=== PATIENT | female | born 1990 | race Caucasian/White ===

== ENCOUNTER 2021-02-16 01:55 | Observation (INO) | payer OTHER ==
--- NOTE | 2021-02-16 02:05 | ED ---
Nausea/Vomiting/Diarrhea HPI - General Stated complaint: NVD Time Seen by Provider: 02/16/21 02:04 - History of Present Illness Initial comments: This is a 22-year-old male DF for evaluation today she presents today for evaluation regards to when trying from opiates. Patient has been taking chronic opiates currently going through withdrawal she was given some form of Suboxone rechecks and he believes that she is too early and she has a severe anxiety type all by mouth trial reaction MD complaint: nausea, vomiting, diarrhea, abdominal pain Description of Vomiting: food contents Associated Abdominal Pain: Yes Radiation: none Quality: cramping, aching Improves with: none Worsens with: none Context: sick contacts Associated Symptoms: myalgias, nausea/vomiting - Related Data Home Medications Medication Instructions Recorded Confirmed Acetaminophen [Tylenol Arthritis] 650 mg PO Q4H PRN 02/16/21 02/16/21 Calcium/Magnes 1 tab PO DIRECTED 02/16/21 02/16/21 Chlorpheniramine Maleate 4 mg PO Q4H PRN 02/16/21 02/16/21 [Chlor-Trimeton] Ibuprofen [Motrin] 600 mg PO Q6H PRN 02/16/21 02/16/21 Multivitamins, Thera [Multivitamin 1 tab PO DAILY 02/16/21 02/16/21 (formulary)] Penicillin V Potassium [Pen Vee K] 500 mg PO Q6H 02/16/21 02/16/21 Thiamine [Vitamin B-1] 100 mg PO DAILY 02/16/21 02/16/21 buPROPion XL [Wellbutrin XL] 150 mg PO DAILY@0600 02/16/21 02/16/21 buprenorphine HCL [Subutex] 4 mg SL ONCE 02/16/21 02/16/21 busPIRone HCl [Buspar] 10 mg PO TID PRN 02/16/21 02/16/21 cloNIDine HCL [Catapres] 0.1 mg PO Q4H PRN 02/16/21 02/16/21 ondansetron HCL [Zofran Oral Soln] 4 mg PO Q6H PRN 02/16/21 02/16/21 ondansetron HCL [Zofran] 8 mg PO Q6H PRN 02/16/21 02/16/21 traZODone HCL 50 - 150 mg PO HS 02/16/21 02/16/21 Allergies Allergy/AdvReac Type Severity Reaction Status Date / Time No Known Allergies Allergy Verified 02/16/21 09:01 Review of Systems ROS Statement: Those systems with pertinent positive or pertinent negative responses have been documented in the HPI. ROS Other: All systems not noted in ROS Statement are negative. General Exam General appearance: alert, in no apparent distress Head exam: Present: atraumatic, normocephalic, normal inspection Eye exam: Present: normal appearance, PERRL, EOMI. Absent: scleral icterus, conjunctival injection, periorbital swelling ENT exam: Present: normal exam, mucous membranes moist Neck exam: Present: normal inspection. Absent: tenderness, meningismus, lymphadenopathy Respiratory exam: Present: normal lung sounds bilaterally. Absent: respiratory distress, wheezes, rales, rhonchi, stridor Cardiovascular Exam: Present: regular rate, normal rhythm, normal heart sounds. Absent: systolic murmur, diastolic murmur, rubs, gallop, clicks GI/Abdominal exam: Present: soft, normal bowel sounds. Absent: distended, tenderness, guarding, rebound, rigid Extremities exam: Present: normal inspection, full ROM, normal capillary refill. Absent: tenderness, pedal edema, joint swelling, calf tenderness Back exam: Present: normal inspection Neurological exam: Present: alert, oriented X3, CN II-XII intact Psychiatric exam: Present: normal affect, normal mood Skin exam: Present: warm, dry, intact, normal color. Absent: rash Course Vital Signs 02/16/21 02/16/21 02/16/21 02:11 04:35 10:04 Temperature 99.1 F 98.4 F Pulse Rate 72 88 91 Respiratory 18 18 18 Rate Blood Pressure 120/71 109/85 119/66 O2 Sat by Pulse 95 96 97 Oximetry 02/16/21 02/16/21 15:23 17:00 Temperature 98.5 F Pulse Rate 84 67 Respiratory 18 20 Rate Blood Pressure 110/68 123/84 O2 Sat by Pulse 98 96 Oximetry - Reevaluation(s) Reevaluation #1: Medical record is reviewed Patient symptoms adequately improving control Patient informed results and questions have been answered Medical Decision Making - Medical Decision Making 22 female DF for evaluation of alcohol withdrawal. Patient given symptomatic therapy here feels improved and can be admitted for treatment of symptoms dominic ent - Lab Data Result diagrams: 02/16/21 07:12 02/16/21 07:12 Lab Results 02/16/21 02/16/21 Range/Units 02:45 02:45 WBC 12.8 H (3.8-10.6) k/uL RBC 4.97 (3.80-5.40) m/uL Hgb 15.1 (11.4-16.0) gm/dL Hct 44.9 (34.0-46.0) % MCV 90.3 (80.0-100.0) fL MCH 30.3 (25.0-35.0) pg MCHC 33.6 (31.0-37.0) g/dL RDW 12.7 (11.5-15.5) % Plt Count 237 (150-450) k/uL MPV 7.7 Neutrophils % 87 % Lymphocytes % 8 % Monocytes % 4 % Eosinophils % 0 % Basophils % 0 % Neutrophils # 11.1 H (1.3-7.7) k/uL Lymphocytes # 1.0 (1.0-4.8) k/uL Monocytes # 0.6 (0-1.0) k/uL Eosinophils # 0.0 (0-0.7) k/uL Basophils # 0.0 (0-0.2) k/uL Sodium 141 (137-145) mmol/L Potassium 4.1 (3.5-5.1) mmol/L Chloride 104 (98-107) mmol/L Carbon Dioxide 27 (22-30) mmol/L Anion Gap 10 mmol/L BUN 24 H (7-17) mg/dL Creatinine 0.86 (0.52-1.04) mg/dL Est GFR (CKD-EPI)AfAm >90 (>60 ml/min/1.73 sqM) Est GFR (CKD-EPI)NonAf >90 (>60 ml/min/1.73 sqM) Glucose 118 H (74-99) mg/dL Calcium 11.0 H (8.4-10.2) mg/dL Phosphorus 1.9 L (2.5-4.5) mg/dL Magnesium 2.1 (1.6-2.3) mg/dL Total Bilirubin 0.6 (0.2-1.3) mg/dL AST 37 H (14-36) U/L ALT 31 (4-34) U/L Alkaline Phosphatase 105 (38-126) U/L Creatine Kinase 595 H (30-135) U/L Total Protein 8.6 H (6.3-8.2) g/dL Albumin 5.3 H (3.5-5.0) g/dL - EKG Data -: EKG Interpreted by Me (EKG shows sinus tachycardia 102 VT 134 QRS 84 QTc 497) Disposition Clinical Impression: Opiate withdrawal Disposition: ADMITTED IP TO THIS HOSP Condition: Fair Is patient prescribed a controlled substance at d/c from ED?: No
[2021-02-16] MEDS ORDERED: SODIUM CHLORIDE 0.9% 500 ML 500 ML IV STA (02:16)
[2021-02-16] MEDS ORDERED: ONDANSETRON 4 MG/2 ML VIAL IVP STA (02:16)
[2021-02-16] MEDS ORDERED: SODIUM CHLORIDE 0.9% 1,000 ML IV STA ×2 (02:16)
[2021-02-16] MEDS ORDERED: LORazepam 2 MG/ML INJ IV STA ×2 (02:16→03:42)
[2021-02-16] MEDS ORDERED: diphenhydrAMINE 50 MG/ML 1 ML VIAL IVP STA (02:16)
[2021-02-16] MEDS ORDERED: cloNIDine 0.3 MG/24HR PATCH TRANSDERM SCH (02:30)
[2021-02-16 03:27] LABS: ALT 31 U/L (4-34); AST 37 U/L (14-36); African American GFR (CKD) >90 (>60 ml/min/1.73 sqM); Albumin 5.3 g/dL (3.5-5.0); Alkaline Phosphatase 105 U/L (38-126); Anion Gap 10 mmol/L; Blood Urea Nitrogen 24 mg/dL (7-17); Carbon Dioxide 27 mmol/L (22-30); Chloride 104 mmol/L (98-107); Creatine Kinase 595 U/L (30-135); Glucose 118 mg/dL (74-99); Magnesium 2.1 mg/dL (1.6-2.3); Non-African American GFR(CKD) >90 (>60 ml/min/1.73 sqM); Phosphorus 1.9 mg/dL (2.5-4.5); Potassium 4.1 mmol/L (3.5-5.1); Sodium 141 mmol/L (137-145); Total Bilirubin 0.6 mg/dL (0.2-1.3); Total Protein 8.6 g/dL (6.3-8.2)
[2021-02-16 03:32] LABS: Basophils % (A) 0 %; Eosinophils % (A) 0 %; HCT 44.9 % (34.0-46.0); HGB 15.1 gm/dL (11.4-16.0); Lymphocytes % (A) 8 %; MCH 30.3 pg (25.0-35.0); MCHC 33.6 g/dL (31.0-37.0); MCV 90.3 fL (80.0-100.0); Mean Platelet Volume 7.7; Monocytes # (A) 0.6 k/uL (0-1.0); Monocytes % (A) 4 %; Neutrophils # (A) 11.1 k/uL (1.3-7.7); Neutrophils % (A) 87 %; Platelet Count 237 k/uL (150-450); RBC 4.97 m/uL (3.80-5.40); RDW 12.7 % (11.5-15.5); WBC 12.8 k/uL (3.8-10.6)
[2021-02-16] MEDS ORDERED: NALOXONE 0.4 MG/ML 1 ML VIAL IV PRN (03:42)
[2021-02-16] MEDS ORDERED: diphenhydrAMINE 50 MG/ML 1 ML VIAL IVP PRN (03:43)
[2021-02-16] MEDS ORDERED: ONDANSETRON 4 MG/2 ML VIAL IVP PRN (03:43)
[2021-02-16] MEDS: DEXTROSE 5%-0.45% NACL 1,000 ML IV SCH ×2 (04:34→20:18)
[2021-02-16 07:29] LABS: Basophils % (A) 0 %; Eosinophils # (A) 0.1 k/uL (0-0.7); Eosinophils % (A) 1 %; HCT 39.4 % (34.0-46.0); HGB 13.5 gm/dL (11.4-16.0); Lymphocytes # (A) 1.3 k/uL (1.0-4.8); Lymphocytes % (A) 13 %; MCH 30.8 pg (25.0-35.0); MCHC 34.2 g/dL (31.0-37.0); Mean Platelet Volume 7.6; Monocytes # (A) 0.4 k/uL (0-1.0); Monocytes % (A) 4 %; Neutrophils # (A) 8.4 k/uL (1.3-7.7); Neutrophils % (A) 81 %; Platelet Count 203 k/uL (150-450); RBC 4.37 m/uL (3.80-5.40); WBC 10.3 k/uL (3.8-10.6)
[2021-02-16] MEDS ORDERED: cloNIDine 0.1 MG/24HR PATCH TRANSDERM SCH (10:00)
[2021-02-16] MEDS: SODIUM CHLORIDE 0.9% 1,000 ML IV SCH ×2 (10:21→20:10)
[2021-02-16] MEDS ORDERED: busPIRone HCl 10 MG TAB PO PRN (10:50)
[2021-02-16] MEDS ORDERED: IBUPROFEN 600 MG TAB PO PRN (10:50)
[2021-02-16] MEDS ORDERED: ACETAMINOPHEN TAB 325 MG TAB PO PRN (10:50)
[2021-02-16] MEDS ORDERED: ONDANSETRON 4 MG TAB PO PRN (10:50)
--- NOTE | 2021-02-16 10:56 | P.HPIM ---
History of Present Illness Patient is an 30-year-old female came in with complains of nausea, vomiting, diarrhea, excessive sweating and some crampy abdominal pain and muscle cramps. Patient was given a dose of Lipitor phone after which patient started having the symptoms. Patient was started on Ativan and clonidine and Benadryl. Patient has significant symptomatic improvement. Patient is clinically doing well probably can be discharged tomorrow Patient has elevated white blood cell count. There is no evidence of infection at this time clinically. I do not have any chest x-ray or urinalysis available at this time. Patient seems to be on penicillin V we unsure why she is on penicillin, need to to verify with the patient. Review of Systems REVIEW OF SYSTEMS: CONSTITUTIONAL: No fever, no malaise, no fatigue. HEENT: No recent visual problems or hearing problems. Denied any sore throat. CARDIOVASCULAR: No chest pain, orthopnea, PND, no palpitations, no syncope. PULMONARY: No shortness of breath, no cough, no hemoptysis. GASTROINTESTINAL: As mentioned in HPI NEUROLOGICAL: No headaches, no weakness, no numbness. HEMATOLOGICAL: Denies any bleeding or petechiae. GENITOURINARY: Denies any burning micturition, frequency, or urgency. MUSCULOSKELETAL/RHEUMATOLOGICAL: Denies any joint pain, swelling, or any muscle pain. ENDOCRINE: Denies any polyuria or polydipsia. The rest of the 14-point review of systems is negative. Past Medical History Past Medical History: No Reported History History of Any Multi-Drug Resistant Organisms: None Reported Past Surgical History: No Surgical Hx Reported Past Psychological History: ADD/ADHD, Anxiety, Depression Smoking Status: Never smoker Past Alcohol Use History: Occasional Past Drug Use History: Cocaine, Heroin, Opiates Medications and Allergies Home Medications Medication Instructions Recorded Confirmed Type Acetaminophen [Tylenol Arthritis] 650 mg PO Q4H PRN 02/16/21 02/16/21 History Calcium/Magnes 1 tab PO DIRECTED 02/16/21 02/16/21 History Chlorpheniramine Maleate 4 mg PO Q4H PRN 02/16/21 02/16/21 History [Chlor-Trimeton] Ibuprofen [Motrin] 600 mg PO Q6H PRN 02/16/21 02/16/21 History Multivitamins, Thera [Multivitamin 1 tab PO DAILY 02/16/21 02/16/21 History (formulary)] Penicillin V Potassium [Pen Vee K] 500 mg PO Q6H 02/16/21 02/16/21 History Thiamine [Vitamin B-1] 100 mg PO DAILY 02/16/21 02/16/21 History buPROPion XL [Wellbutrin Xl] 150 mg PO DAILY@0600 02/16/21 02/16/21 History buprenorphine HCL [Subutex] 4 mg SL ONCE 02/16/21 02/16/21 History busPIRone HCl [Buspar] 10 mg PO TID PRN 02/16/21 02/16/21 History cloNIDine HCL [Catapres] 0.1 mg PO Q4H PRN 02/16/21 02/16/21 History ondansetron HCL [Zofran Oral Soln] 4 mg PO Q6H PRN 02/16/21 02/16/21 History ondansetron HCL [Zofran] 8 mg PO Q6H PRN 02/16/21 02/16/21 History traZODone HCL 50 - 150 mg PO HS 02/16/21 02/16/21 History Allergies Allergy/AdvReac Type Severity Reaction Status Date / Time No Known Allergies Allergy Verified 02/16/21 09:01 Physical Exam Vitals: Vital Signs Temp Pulse Resp BP Pulse Ox 02/16/21 10:04 98.4 F 91 18 119/66 97 02/16/21 04:35 88 18 109/85 96 02/16/21 02:11 99.1 F 72 18 120/71 95 Intake and Output 02/15/21 02/16/21 02/16/21 22:59 06:59 14:59 Other: Weight 77.111 kg PHYSICAL EXAMINATION: GENERAL: The patient is alert and oriented x3, not in any acute distress. Well developed, well nourished. HEENT: Pupils are round and equally reacting to light. EOMI. No scleral icterus. No conjunctival pallor. Normocephalic, atraumatic. No pharyngeal erythema. No thyromegaly. CARDIOVASCULAR: S1 and S2 present. No murmurs, rubs, or gallops. PULMONARY: Chest is clear to auscultation, no wheezing or crackles. ABDOMEN: Soft, nontender, nondistended, normoactive bowel sounds. No palpable organomegaly. MUSCULOSKELETAL: No joint swelling or deformity. EXTREMITIES: No cyanosis, clubbing, or pedal edema. NEUROLOGICAL: Gross neurological examination did not reveal any focal deficits. SKIN: No rashes. Results CBC & Chem 7: 02/16/21 07:12 02/16/21 02:45 Labs: Abnormal Lab Results - Last 24 Hours (Table) 02/16/21 02/16/21 02/16/21 Range/Units 02:45 02:45 07:12 WBC 12.8 H (3.8-10.6) k/uL Neutrophils # 11.1 H 8.4 H (1.3-7.7) k/uL BUN 24 H (7-17) mg/dL Glucose 118 H (74-99) mg/dL Calcium 11.0 H (8.4-10.2) mg/dL Phosphorus 1.9 L (2.5-4.5) mg/dL AST 37 H (14-36) U/L Creatine Kinase 595 H (30-135) U/L Total Protein 8.6 H (6.3-8.2) g/dL Albumin 5.3 H (3.5-5.0) g/dL Assessment and Plan Plan: -Opiate withdrawal: Symptomatic treatment with Ativan clonidine as needed. Presently clinically doing well if patient agrees to the patient probably will be discharged later today if not patient will be monitored overnight -Leukocytosis reactive without any evidence of infection -History of multiple drug use patient mostly snorts. Denied any IV drug use recently patient denied any history of hepatitis C in the past. Anxiety disorder -Depression
[2021-02-16 12:42] LABS: African American GFR (CKD) 116.3 (60.0-200.0); Albumin 4.4 g/dL (3.80-4.90); Albumin/Globulin Ratio 1.69 (1.60-3.17); BUN/Creat Ratio 31.25 Ratio (12.00-20.00); Calcium 9.4 mg/dL (8.7-10.3); Globulin 2.6 g/dL (1.6-3.3); Magnesium 2.4 mg/dL (1.5-2.4); Non-African American GFR(CKD) 100.3 (60.0-200.0); Total Bilirubin 0.5 mg/dL (0.3-1.2)
[2021-02-16] MEDS: LORazepam 2 MG/ML INJ IV PRN (17:03)
[2021-02-16] MEDS ORDERED: traZODone HCL 50 MG TAB PO SCH (21:00)
[2021-02-17] MEDS: LORazepam 2 MG/ML INJ IV PRN ×2 (00:30→07:53)
[2021-02-17 03:21] VITALS: PULSE 66
[2021-02-17] MEDS: SODIUM CHLORIDE 0.9% 1,000 ML IV SCH (05:47)
[2021-02-17] MEDS ORDERED: buPROPion XL 150 MG TAB.ER.24H PO SCH (06:00)
[2021-02-17] MEDS ORDERED: THIAMINE 100 MG TAB PO SCH (09:00)
[2021-02-17] MEDS ORDERED: MULTIVITAMINS, THERA 1 EACH TAB PO SCH (09:00)
[2021-02-17 15:28] VITALS: BP 111/74; RESP 17; TEMP 98
--- NOTE | 2021-04-18 09:48 | P.DS ---
Providers Date of admission: 02/16/21 03:43 Expected date of discharge: 02/17/21 Attending physician: Billie Arredondo Primary care physician: Stated None Hospital Course: Discharge diagnosis -Acute Opiate withdrawal: Symptomatic treatment with Ativan clonidine as needed. -Leukocytosis reactive without any evidence of infection -History of multiple drug use patient mostly snorts. Denied any IV drug use recently patient denied any history of hepatitis C in the past. -Anxiety disorder -Depression Hospital course Patient is an 30-year-old female came in with complains of nausea, vomiting, diarrhea, excessive sweating and some crampy abdominal pain and muscle cramps. Patient was given a dose of Lipitor phone after which patient started having the symptoms. Patient was started on Ativan and clonidine and Benadryl. Patient has significant symptomatic improvement. Patient is clinically doing well probably can be discharged tomorrow Patient has elevated white blood cell count. There is no evidence of infection at this time clinically. I do not have any chest x-ray or urinalysis available at this time. Patient seems to be on penicillin V we unsure why she is on penicillin, need to to verify with the patient. Patient was continue to monitor for withdrawal symptoms. Continued on Ativan and clonidine as needed. Patient did improve clinically. Patient is willing to go for drug rehab and was transferred in stable condition. PHYSICAL EXAMINATION: GENERAL: The patient is alert and oriented x3, not in any acute distress. Well developed, well nourished. HEENT: Pupils are round and equally reacting to light. EOMI. No scleral icterus. No conjunctival pallor. Normocephalic, atraumatic. No pharyngeal erythema. No thyromegaly. CARDIOVASCULAR: S1 and S2 present. No murmurs, rubs, or gallops. PULMONARY: Chest is clear to auscultation, no wheezing or crackles. ABDOMEN: Soft, nontender, nondistended, normoactive bowel sounds. No palpable organomegaly. MUSCULOSKELETAL: No joint swelling or deformity. EXTREMITIES: No cyanosis, clubbing, or pedal edema. NEUROLOGICAL: Gross neurological examination did not reveal any focal deficits. SKIN: No rashes. - Vital Signs Vital signs: Vital Signs Temp 98.2 F 02/17/21 07:00 Pulse 66 02/17/21 07:44 Resp 16 02/17/21 07:44 BP 129/82 02/17/21 07:00 Pulse Ox 100 02/17/21 07:00 Intake & Output 02/16/21 02/17/21 02/17/21 18:59 06:59 18:59 Weight 77.111 kg Other: # Voids 3 3 # Bowel Movements 1 - Labs CBC & Chem 7: 02/16/21 07:12 02/16/21 07:12 Labs: Abnormal Lab Results - Last 24 Hours (Table) 02/16/21 Range/Units 07:12 BUN/Creatinine Ratio 31.25 H (12.00-20.00) Ratio Glucose 136 H (70-110) mg/dL Patient Condition at Discharge: Fair Plan - Discharge Summary Discharge Rx Participant: No New Discharge Prescriptions: Continue traZODone HCL 50 - 150 mg PO HS Ibuprofen [Motrin] 600 mg PO Q6H PRN PRN Reason: Pain ondansetron HCL [Zofran Oral Soln] 4 mg PO Q6H PRN PRN Reason: Nausea busPIRone HCl [Buspar] 10 mg PO TID PRN PRN Reason: Anxiety Penicillin V Potassium [Pen Vee K] 500 mg PO Q6H Thiamine [Vitamin B-1] 100 mg PO DAILY Multivitamins, Thera [Multivitamin (formulary)] 1 tab PO DAILY Chlorpheniramine Maleate [Chlor-Trimeton] 4 mg PO Q4H PRN PRN Reason: Allergy Symptoms Acetaminophen [Tylenol Arthritis] 650 mg PO Q4H PRN PRN Reason: Pain ondansetron HCL [Zofran] 8 mg PO Q6H PRN PRN Reason: Nausea cloNIDine HCL [Catapres] 0.1 mg PO Q4H PRN PRN Reason: Blood Pressure buprenorphine HCL [Subutex] 4 mg SL ONCE buPROPion XL [Wellbutrin XL] 150 mg PO DAILY@0600 Calcium/Magnes 1 tab PO DIRECTED Discharge Medication List Acetaminophen [Tylenol Arthritis] 650 mg PO Q4H PRN 02/16/21 [History] Calcium/Magnes 1 tab PO DIRECTED 02/16/21 [History] Chlorpheniramine Maleate [Chlor-Trimeton] 4 mg PO Q4H PRN 02/16/21 [History] Ibuprofen [Motrin] 600 mg PO Q6H PRN 02/16/21 [History] Multivitamins, Thera [Multivitamin (formulary)] 1 tab PO DAILY 02/16/21 [History] Penicillin V Potassium [Pen Vee K] 500 mg PO Q6H 02/16/21 [History] Thiamine [Vitamin B-1] 100 mg PO DAILY 02/16/21 [History] buPROPion XL [Wellbutrin XL] 150 mg PO DAILY@0600 02/16/21 [History] buprenorphine HCL [Subutex] 4 mg SL ONCE 02/16/21 [History] busPIRone HCl [Buspar] 10 mg PO TID PRN 02/16/21 [History] cloNIDine HCL [Catapres] 0.1 mg PO Q4H PRN 02/16/21 [History] ondansetron HCL [Zofran Oral Soln] 4 mg PO Q6H PRN 02/16/21 [History] ondansetron HCL [Zofran] 8 mg PO Q6H PRN 02/16/21 [History] traZODone HCL 50 - 150 mg PO HS 02/16/21 [History] Follow up Appointment(s)/Referral(s): None,Stated [Primary Care Provider] - 1-2 days Patient Instructions/Handouts: Acute Nausea and Vomiting (DC), Opioid Withdrawal (DC) Discharge Disposition: OTHER INSTITUTION NOT DEFINED
== END 2021-02-17 18:10 | disposition other institution (70) ==
LOC: EC 01:55 → 6NMEDSUR 03:43
PROVIDERS: ADMIT Hospitalist; ATTEND Hospitalist
DX: F11.23 Opioid dependence with withdrawal (principal); D72.829 Elevated white blood cell count, unspecified; F32.9 Major depressive disorder, single episode, unspecified; F41.9 Anxiety disorder, unspecified; F90.9 Attention-deficit hyperactivity disorder, unspecified type; F19.90 Other psychoactive substance use, unspecified, uncomplicated; Z20.822 Contact with and (suspected) exposure to COVID-19; Z79.899 Other long term (current) drug therapy
CPT/HCPCS: 96376 ×3; 96361; 96374; 96375; 99285; 36415; 93005; 80053; 82550; 83735; 84100; 85025; 87635; G0378 ×2; J2060 ×2; J1200; J2405